=== PATIENT | male | born 2000 | race African-American/Black ===

== ENCOUNTER 2024-07-13 07:45 | Emergency (ER) | payer BC, SELFPAY ==
--- NOTE | ~2024-07-13 | XR_ITS ---
Clinical Indication: Syncope PA and lateral views of the chest: Comparison: None Findings: The lungs are clear, without evidence of focal consolidation or pleural effusion. Cardiome diastinal silhouette is within normal limits. Bones and soft tissues are unremarkable. Impression: Normal chest. Reviewed, dictated and finalized at location . Impression: Normal chest.
--- NOTE | 2024-07-13 07:52 | ECG_ITS ---
Test Date: 2024-07-13 07:56:30 Measurements Intervals [place] Rate: 61 P: 70 [place]: 235 QRS: 52 QRSD: 106 T: 47 QT: 393 QTc: 399 Interpretive Statements SINUS RHYTHM WITH FIRST DEGREE AV BLOCK ST ELEVATION IN DIFFUSE LEADS- PROBABLY EARLY REPOLARIZATION BORDERLINE ECG No previous ECG available for comparison Electronically Signed On 07-13-2024 08:25:50 CDT by Estuardo Jerez D.O.
[2024-07-13 07:54] VITALS: PULSE 61
[2024-07-13 08:05] VITALS: BP 113/62; PULSE 58
[2024-07-13 08:06] VITALS: BP 111/61; BP 121/66; PULSE 65; PULSE 72
[2024-07-13 08:08] VITALS: TEMP 36.4
--- NOTE | 2024-07-13 08:12 | ED_ITS ---
HPI - Syncope General Chief Complaint: Syncope Stated Complaint: syncopal episode this morning Time Seen by Provider: 07/13/24 07:54 History of Present Illness HPI narrative: Patient is a 23-year-old male who presents ER after having an episode of syncope this morning. He had urinated and then felt nauseous and tried to vomit when he became lightheaded and passed out. Unconscious for 20 seconds her last. No blood thinners. Feels well at this time. Denies any risk for dehydration over last 24 hours. No recent medication changes. Related Data Allergies Allergy/AdvReac Type Severity Reaction Status Date / Time No Known Allergies Allergy Verified 07/13/24 07:47 Review of Systems 2 Review of Systems: All systems reviewed & are unremarkable except as noted in HPI and below Constitutional: Constitutional: Reports no additional constitutional complaints ENT: Reports system reviewed and no additional complaints, except as documented Cardiovascular: Cardiovascular: Reports no additional cardiovascular complaints Respiratory: Respiratory: Reports no additional respiratory complaints Neurologic: Reports system reviewed and no additional complaints, except as documented PMFSH Past Medical History Medical History (Updated 07/13/24 @ 10:39 by Best Mckeon MD) Healthy adult male Surgical History Surgical History (Updated 07/13/24 @ 08:13 by Best Mckeon MD) No pertinent past surgical history Exam 2 Narrative: GENERAL: Well-appearing, well-nourished, and in no acute distress. HEAD: Normocephalic, atraumatic. ENT: Mucous membranes moist. CHEST: Clear to auscultation. No respiratory distress. HEART: Regular rate and rhythm. No murmur heard. Normal peripheral pulses. ABDOMEN: Soft, nontender, nondistended. EXTREMITIES: Normal range of motion. No edema. SKIN: Warm, dry, no rash. NEURO: Alert and oriented x3. PSYCH: Normal mood and affect. Course Course Emergency Course: Lab/EKG/orthostatics unremarkable. Patient hydrated. Appropriate for discharge home. Vital Signs Vital signs: Vital Signs Pulse Rate 61 07/13/24 07:54 Temperature 97.5 F L 07/13/24 08:08 Pulse Rate 72 07/13/24 08:06 Blood Pressure 111/61 07/13/24 08:06 MDM - Syncope Lab Data 07/13/24 08:02 07/13/24 08:02 Labs: Lab Results 07/13/24 Range/Units 08:02 WBC 8.6 (4.5-10.0) K/mm3 RBC 5.04 (4.6-6.20) M/mm3 Hgb 13.8 L (14.0-18.0) g/dL Hct 44.5 (42.0-52.0) % MCV 88.3 (80-100) fl MCH 27.4 (26-34) pg MCHC 31.0 L (32-36) g/dl RDW 12.1 (11.5-14.5) % Plt Count 330 (150-375) k/mm3 MPV 9.3 (7.4-10.4) fl Immature Gran % (Auto) 0.3 (0-0.5) % Neut % (Auto) 48.9 (45.5-73.1) % Lymph % (Auto) 42.0 (18.3-44.2) % [place] % (Auto) 7.4 (2.6-8.5) % Eos % (Auto) 0.5 (0-4.4) % Baso % (Auto) 0.9 (0.2-1.2) % Lymph # (Auto) 3.61 H (0.9-3.2) K/mm3 [place] # (Auto) 0.6 (0.1-0.6) K/mm3 Eos # (Auto) 0.0 (0-0.3) K/mm3 Baso # (Auto) 0.1 (0.0-0.1) K/mm3 Abs Immat Gran (auto) 0.03 (0.00-0.031) K/mm3 Absolute Neuts (auto) 4.2 (1.3-6.7) K/mm3 Absolute Nucleated RBC 0.000 (0.0-0.012) K/mm3 Nucleated RBC % 0.0 (0.0-0.2) % Sodium 138 (137-145) mmol/L Potassium 4.1 (3.4-5.0) mmol/L Chloride 103 (98-107) mmol/L Carbon Dioxide 25 (22-30) mmol/L Anion Gap 10 (4-12) mmol/L BUN 10 (9-20) mg/dL Creatinine 0.89 (0.7-1.3) mg/dL Estim Creat Clear Calc 135 ml/min Estimated GFR > 60 (59 - ) Glucose 146 H (65-110) mg/dL Calcium 9.4 (8.4-10.2) mg/dL Total Bilirubin 0.8 (0.2-1.3) mg/dL AST 45 (17-59) U/L ALT 35 (6-50) U/L Alkaline Phosphatase 71 (38-126) U/L Total Protein 7.9 (6.3-8.2) g/dL Albumin 4.7 (3.5-5.1) g/dL Imaging Data Radiologist's impression: ITS Impressions Chest X-Ray 07/13/24 08:35 Impression: Normal chest. ECG Data EKG #1: ECG completion date: 07/13/24 ECG completion time: 07:56 EKG Interpretation: normal rate (61), sinus rhythm, no ST changes (early repolarization abnormality), normal QRS and normal QT Discharge Plan Discharge Clinical Impression: Vasovagal syncope Patient Disposition: Home Condition: Stable Instructions: Syncope (ED) Additional Instructions: Return to the emergency department if you develop severe abdominal pain, severe nausea and vomiting to the point where you are unable to keep down fluids, if you develop chest pain or difficulty breathing, blood in your stool, dizziness or fainting, or if you develop any other new or concerning symptoms as these could be signs of more serious medical illness. Try to stay well hydrated. Patient Language: Syrian Prescriptions: New ondansetron 4 mg tablet,disintegrating 4 mg PO Q6H PRN (Reason: nausea and vomiting) Qty: 10 0RF Follow-up/Referrals: Danny Crandall MD [Physician] - 1 Week PHYSICIAN,VAULT CUSTODIAN [Primary Care Provider] -
[2024-07-13 08:13] LABS: Basophils Absolute Auto 0.1 K/mm3 (0.0-0.1); Basophils Percent Auto 0.9 % (0.2-1.2); Eosinophils Percent Auto 0.5 % (0-4.4); Hematocrit 44.5 % (42.0-52.0); Hemoglobin 13.8 g/dL (14.0-18.0); Immature Granulocyte Absolute 0.03 K/mm3 (0.00-0.031); Immature Granulocyte Percent A 0.3 % (0-0.5); Lymphocytes Absolute Auto 3.61 K/mm3 (0.9-3.2); Mean Corpuscular Hemoglobin 27.4 pg (26-34); Mean Corpuscular Volume 88.3 fl (80-100); Mean Platelet Volume 9.3 fl (7.4-10.4); Monocytes Absolute Auto 0.6 K/mm3 (0.1-0.6); Monocytes Percent Auto 7.4 % (2.6-8.5); Neutrophils Absolute Auto 4.2 K/mm3 (1.3-6.7); Neutrophils Percent Auto 48.9 % (45.5-73.1); Platelet Count Result 330 k/mm3 (150-375); Red Blood Count 5.04 M/mm3 (4.6-6.20); Red Cell Distribution Width 12.1 % (11.5-14.5); White Blood Count 8.6 K/mm3 (4.5-10.0)
--- OUTSIDE RECORDS SUMMARY | 2024-07-13 08:18 | XMS_ITS | Continuity of Care Document ---
Author Organization [facility] [employer] Address [address] [place] [address] Care Team Providers Care Special Education Teaching Assistant Name Role Phone No Information Unavailable Unavailable Advance Directives Directive Yes / No Effective Date File Name No Information Encounters Encounter Description Practice Location Reason(s) For Visit Diagnoses Date Provider Providers Copied on Encounter [facility], [address], [place], [phone], No Information No Information Family History Family Member Type Diagnosis Age At Onset Maternal Aunt Problem (finding) Congenital Heart Disea se Problem (finding) No family history of Morton dden Problem (finding) No family history of Ar rhythmia Problem (finding) No family hist ory of Cardiomyopathy - dilated Problem (finding) No family hist ory of Cardiomyopathy - hypertrophic Paternal Grandfather Problem (finding) Hypertension Problem (finding) No family hist ory of Premature CAD Problem (finding) No family hist ory of Diabetes Mellitus Paternal Grandmother Problem (finding) Hypertension Payers Payer name Insurance type Covered libertarian ID Authoriza tion(s) No Information Social History Type Description Quantity Date Captured Comments Alcohol Use Details Unknown Caffeine Use Details Unknown Tobacco Use Status No Information Smoking Status No Information Sex Male Vital Signs Date / Time: Height Weight BMI Pulse Rate Blood Pressure Temperature Respiratory Rate Body Surface Area Head Circumference BMI percentile Pulse Ox Inhaled Ox 2:13 PM 69.00 in 77.111 kg (170.00 lbs) 25.2 0 kg/m eter (2) 72 /min 18 /min 1.94 meter(2) 93 Chief Complaint And Reason For Visit No Information History Of Present Illness Encounter Date Complaint History Of Prese nt Illness No Information Instructions Date Instruction Additional Infor mation No Information Assessments Type Assessment Date No Information
--- OUTSIDE RECORDS SUMMARY | 2024-07-13 08:18 | XMS_ITS | Continuity of Care Document ---
Author Organization [facility] Address [address] [place] [address] Phone Care Team Providers Care Auto Garage Mechanic Name Role Phone Unavailable Unavailable Unavailable Advance Directives Directive Yes / No Effective Date File Name No Information Encounters Encounter Description Practice Location Reason(s) For Visit Diagnoses Date Provider Providers Copied on Encounter [facility], [address], [place], [address], tel:[phone] [address] [place] [address] No Information 6 No Information Referring Provider: CLAUDIO Schulte, [address], [address]. tel:[phone] Family History Family Member Type Diagnosis Age At Onset Problem (finding) No family hist ory of Diabetes Mellitus Problem (finding) No family hist ory of Cardiomyopathy - hypertrophic Problem (finding) No family hist ory of Cardiomyopathy - dilated Paternal Grandfather Problem (finding) Hypertension Problem (finding) No family history of Morton dden Problem (finding) No family hist ory of Premature CAD Paternal Grandmother Problem (finding) Hypertension Maternal Aunt Problem (finding) Congenital Heart Disea se Problem (finding) No family history of Ar rhythmia Payers Payer name Insurance type Covered democrat ID Authoriza tion(s) No Information Social History Type Description Quantity Date Captured Comments Sex Male Smoking Status No Information Chief Complaint And Reason For Visit No Information History Of Present Illness Encounter Date Complaint History Of Prese nt Illness No Information Instructions Date Instruction Additional Infor mation No Information Assessments Type Assessment Date No Information
[2024-07-13 08:21] LABS: Alanine Aminotransferase 35 U/L (6-50); Albumin Level 4.7 g/dL (3.5-5.1); Alkaline Phosphatase 71 U/L (38-126); Anion Gap 10 mmol/L (4-12); Aspartate Amino Transferase 45 U/L (17-59); Bilirubin,Total 0.8 mg/dL (0.2-1.3); Blood Urea Nitrogen 10 mg/dL (9-20); Calcium 9.4 mg/dL (8.4-10.2); Carbon Dioxide 25 mmol/L (22-30); Chloride 103 mmol/L (98-107); Estimated CRCL calculation 135 ml/min; Estimated Glomerular Filt Rate > 60; Glucose 146 mg/dL (65-110); Potassium 4.1 mmol/L (3.4-5.0); Sodium 138 mmol/L (137-145); Total Protein 7.9 g/dL (6.3-8.2)
[2024-07-13] MEDS: SODIUM CHLORIDE 0.9% IV 1,000 ML 999 ML IV CONT (09:44)
[2024-07-13 10:42] VITALS: BP 110/72; PULSE 56; RESP 13; O2SAT 100
[2024-07-13 10:52] VITALS: BP 110/72; PULSE 62; RESP 13; O2SAT 100
== END 2024-07-13 10:54 | disposition home or self-care (01) ==
PROVIDERS: Emergency Provider Emergency Medicine
DX: R55 Syncope and collapse (principal)
CPT/HCPCS: 36415; 71046; 80053; 85025; 93005; 96360; 99284; J7030

== ENCOUNTER 2024-07-25 14:31 | Emergency (ER) | payer BC, SELFPAY ==
[2024-07-25] VITALS (13 sets, daily range): BP systolic 121–142; BP diastolic 59–81; PULSE 53–82; RESP 12–20; TEMP 36.4; O2SAT 98–100
--- NOTE | ~2024-07-25 | CT_ITS ---
CT abdomen pelvis w con Ordering provider: Luz Maria Finch PA-C History: 23 years Male with . epigastric pain . Comparison: None. Technique: CT abdomen and pelvis with IV and without oral contrast. Automated exposure control and it erative reconstruction technique were employed. The dose-length product was 659.86 mGy-cm. 100 mL Omn ipaque 350 was given IV. Findings: VISUALIZED LOWER CHEST: 3.7 mm nodule is seen in the left lung base laterally. 6 months follow-up [facility] CT is advised. Another smaller one in the right lung base measuring 2 mm is also seen. UPPER ABDOMINAL ORGANS: Liver: Normal. Gallbladder: Normal. Spleen: Normal. Stomach/duodenum: Normal. Pancreas: Normal. Adrenals: Normal. Kidneys: Normal. PELVIC ORGANS: The bladder is underfilled with thickened wall. Evaluation for cystitis advised. BOWEL AND MESENTERY: Colon: No evidence of diverticulitis. Slight thickening of the colon is seen which may be atelectasis . Fecal material is loaded in the colon. The appendix is not demonstrated.. Small Bowel: Normal. No obstruction. Peritoneum/mesentery: No free air or free fluid. No mesenteric lymphadenopathy. RETROPERITONEUM: Normal aorta. No retroperitoneal lymphadenopathy. MUSCULOSKELETAL: Superficial soft tissues: Slightly enlarged inguinal lymph nodes measuring 2 cm on the right and 2.3 cm on the left. Clinical correlation advised. The superficial soft tissues are normal. Bones: Normal spine. IMPRESSION: 1. No evidence of appendicitis, diverticulitis or intestinal obstruction. 2. Thickened wall of the rectum suggestive of acute cholecystitis. Clinical correlation advised. 3. Constipation. Reviewed, dictated and finalized at location A. IMPRESSION: 1. No evidence of appendicitis, diverticulitis or intestinal obstruction. 2. Thickened wall of the rectum suggestive of acute cholecystitis. Clinical co rrelation advised. 3. Constipation.
--- NOTE | 2024-07-25 14:40 | ECG_ITS ---
Test Date: 2024-07-25 14:46:19 Measurements Intervals [place] Rate: 65 P: 58 [place]: 232 QRS: 52 QRSD: 101 T: 40 QT: 370 QTc: 385 Interpretive Statements SINUS RHYTHM WITH FIRST DEGREE AV BLOCK ST ELEVATION IN DIFFUSE LEADS- PROBABLY EARLY REPOLARIZATION MINIMAL Q WAVES- INF/LAT LEADS BASELINE ARTIFACT- I, II, III, AVR, AVL, AVF, V1-V6 BORDERLINE ECG Compared to ECG 07/13/2024 07:56:30 NO SIGNIFICANT CHANGE Electronically Signed On 07-25-2024 14:51:17 CDT by Estuardo Jerez D.O.
[2024-07-25 15:00] LABS: Basophils Percent Auto 0.6 % (0.2-1.2); Eosinophils Absolute Auto 0.2 K/mm3 (0-0.3); Eosinophils Percent Auto 2.5 % (0-4.4); Hematocrit 45.7 % (42.0-52.0); Hemoglobin 14.6 g/dL (14.0-18.0); Immature Granulocyte Absolute 0.02 K/mm3 (0.00-0.031); Immature Granulocyte Percent A 0.3 % (0-0.5); Lymphocytes Absolute Auto 2.68 K/mm3 (0.9-3.2); Lymphocytes Percent Auto 42.2 % (18.3-44.2); Mean Corpuscular HGB Conc 31.9 g/dl (32-36); Mean Corpuscular Hemoglobin 27.4 pg (26-34); Mean Corpuscular Volume 85.7 fl (80-100); Mean Platelet Volume 8.9 fl (7.4-10.4); Monocytes Absolute Auto 0.7 K/mm3 (0.1-0.6); Monocytes Percent Auto 10.2 % (2.6-8.5); Neutrophils Absolute Auto 2.8 K/mm3 (1.3-6.7); Neutrophils Percent Auto 44.2 % (45.5-73.1); Platelet Count Result 333 k/mm3 (150-375); Red Blood Count 5.33 M/mm3 (4.6-6.20); Red Cell Distribution Width 12.2 % (11.5-14.5); White Blood Count 6.4 K/mm3 (4.5-10.0)
--- NOTE | 2024-07-25 15:01 | ED_ITS ---
HPI - Dizziness General Chief Complaint: Dizziness Stated Complaint: dizziness, dark stools Time Seen by Provider: 07/25/24 14:39 Source: patient Mode of arrival: ambulatory Limitations: no limitations History of Present Illness HPI Narrative: This is a 23-year-old male that presents to the emergency department for nausea, dizziness. Ongoing over the last couple of weeks. Reports today he noted his stool looks dark. He does take iron. Denies fevers, vomiting, diarrhea. Related Data Allergies Allergy/AdvReac Type Severity Reaction Status Date / Time No Known Allergies Allergy Verified 07/25/24 14:32 Review of Systems 2 Review of Systems: CONSTITUTIONAL: Denies fever GASTROINTESTINAL: Reports abdominal pain, nausea. Denies vomiting, or diarrhea. GENITOURINARY: Denies dysuria All systems reviewed & are unremarkable except as noted in HPI and below PMFSH Past Medical History Medical History (Updated 07/25/24 @ 19:30 by Luz Maria Finch PA-C) Healthy adult male Surgical History Surgical History (Updated 07/13/24 @ 08:13 by Best Mckeon MD) No pertinent past surgical history Exam 2 Narrative: GENERAL: Well-appearing, well-nourished, and in no acute distress. HEAD: Normocephalic, atraumatic. EYES: EOMI. ENT: Nares clear, no rhinorrhea or epistaxis. Mucous membranes moist. Oropharynx without tonsillar hypertrophy exudate or other lesions. NECK: Supple. No adenopathy or masses. CHEST: Clear to auscultation. No respiratory distress. No wheezes rales or rhonchi HEART: Regular rate and rhythm. No murmur heard. Normal peripheral pulses. ABDOMEN: Soft, nontender, nondistended, normal active bowel sounds. EXTREMITIES: Normal range of motion. No edema. SKIN: Warm, dry, no rash. NEURO: No focal deficits. Alert and oriented x3. PSYCH: Normal mood and affect Course Course Emergency Course: Patient updated on his workup and agrees with plan of care Vital Signs Vital signs: Vital Signs Temperature 97.5 F L 07/25/24 14:35 Pulse Rate 66 07/25/24 14:35 Respiratory Rate 20 07/25/24 14:35 Blood Pressure 142/61 H 07/25/24 14:35 Pulse Oximetry 100 07/25/24 14:35 Oxygen Delivery Room Air 07/25/24 14:35 Temperature 97.5 F L 07/25/24 14:35 Pulse Rate 55 L 07/25/24 18:01 Respiratory Rate 17 07/25/24 18:01 Blood Pressure 127/80 07/25/24 18:01 Pulse Oximetry 100 07/25/24 18:01 Oxygen Delivery Room Air 07/25/24 14:35 MDM - Dizziness MDM Narrative Medical decision making narrative: Patient presents the emergency department for epigastric abdominal discomfort, nausea, dizziness. He is afebrile and nontoxic appearing. His vitals are stable. Endorsing some dark stools, although patient does take iron. Cbc without leukocytosis. Hemoglobin is normal. Metabolic panel without concerning findings. Urine with some evidence of dehydration, patient hydrated with a L of IV fluids in the ED. CT abdomen pelvis shows findings of constipation. Patient updated on his workup and agrees with plan of care, resting comfortably. He is to follow-up with gastroenterology. He was given warnings to return to the ER Differential Diagnosis Differential diagnosis: Likely adverse reaction to drug, orthostatic hypotension and other (Dehydration, electrolyte derangement, anemia, peptic ulcer disease, gastritis) Lab Data Attestation: I reviewed the patient's lab results. 07/25/24 14:51 07/25/24 14:51 Labs: Lab Results 07/25/24 07/25/24 Range/Units 14:51 15:00 WBC 6.4 (4.5-10.0) K/mm3 RBC 5.33 (4.6-6.20) M/mm3 Hgb 14.6 (14.0-18.0) g/dL Hct 45.7 (42.0-52.0) % MCV 85.7 (80-100) fl MCH 27.4 (26-34) pg MCHC 31.9 L (32-36) g/dl RDW 12.2 (11.5-14.5) % Plt Count 333 (150-375) k/mm3 MPV 8.9 (7.4-10.4) fl Immature Gran % (Auto) 0.3 (0-0.5) % Neut % (Auto) 44.2 L (45.5-73.1) % Lymph % (Auto) 42.2 (18.3-44.2) % [place] % (Auto) 10.2 H (2.6-8.5) % Eos % (Auto) 2.5 (0-4.4) % Baso % (Auto) 0.6 (0.2-1.2) % Lymph # (Auto) 2.68 (0.9-3.2) K/mm3 [place] # (Auto) 0.7 H (0.1-0.6) K/mm3 Eos # (Auto) 0.2 (0-0.3) K/mm3 Baso # (Auto) 0.0 (0.0-0.1) K/mm3 Abs Immat Gran (auto) 0.02 (0.00-0.031) K/mm3 Absolute Neuts (auto) 2.8 (1.3-6.7) K/mm3 Absolute Nucleated RBC 0.000 (0.0-0.012) K/mm3 Nucleated RBC % 0.0 (0.0-0.2) % PT 12.8 (11.1-14.7) Seconds INR 0.9 APTT 27.8 (22.3-36.8) Seconds Sodium 139 (137-145) mmol/L Potassium 4.2 (3.4-5.0) mmol/L Chloride 103 (98-107) mmol/L Carbon Dioxide 25 (22-30) mmol/L Anion Gap 11 (4-12) mmol/L BUN 8 L (9-20) mg/dL Creatinine 0.91 (0.7-1.3) mg/dL Estim Creat Clear Calc 133 ml/min Estimated GFR > 60 (59 - ) Glucose 100 (65-110) mg/dL Calcium 9.6 (8.4-10.2) mg/dL Total Bilirubin 0.7 (0.2-1.3) mg/dL AST 39 (17-59) U/L ALT 29 (6-50) U/L Alkaline Phosphatase 73 (38-126) U/L Total Protein 8.7 H (6.3-8.2) g/dL Albumin 4.9 (3.5-5.1) g/dL Lipase 35 (23-300) U/L Urine Color Yellow (Yellow) Urine Appearance Clear (Clear) Urine pH 6.5 (5.0-9.0) Ur Specific [place] 1.019 (1.001-1.035) Urine Protein Negative (Negative) mg/dL Urine Glucose (UA) Negative (Negative) mg/dL Urine Ketones Trace H (Negative) mg/dL Ur Blood (Man) Negative (Negative) Urine Nitrate Negative (Negative) Urine Bilirubin Negative (Negative) Urine Urobilinogen 1.0 (<2.0) mg/dL Leukocyte Esterase Rfl Negative (Negative) DHEERAJ/UL Blood Type O Positive Antibody Screen Negative Imaging Data Radiologist's impression: ITS Impressions Abdomen/Pelvis CT 07/25/24 18:44 IMPRESSION: 1. No evidence of appendicitis, diverticulitis or intestinal obstruction. 2. Thickened wall of the rectum suggestive of acute cholecystitis. Clinical correlation advised. 3. Constipation. ADDENDUM: 07/25/241925 IMPRESSION: 1. No evidence of appendicitis, diverticulitis or intestinal obstruction. 2. Thickened wall of the rectum suggestive of proctitis. Clinical correlation advised. 3. Constipation. ECG Data EKG #1: ECG completion date: 07/25/24 EKG Interpretation: normal rate, sinus rhythm, ST elevation (Consistent with early repolarization), normal QT and no acute changes (compared to EKG 07/13/24) Critical Care Time Critical Care Time Critical Care Time: No Discharge Plan Discharge Clinical Impression: Nausea, Dizziness, Constipation Patient Disposition: Home Condition: Stable Instructions: Constipation (ED), Diet for Stomach Ulcers and Gastritis (ED), Acute Nausea and Vomiting (ED), Dizziness (ED) Additional Instructions: Return to the ER if you experience fever, abdominal pain with nausea and vomiting, you are unable to keep down liquids or solids, or any other symptoms that are concerning to you Small, frequent meals. [place] diet. Remain well hydrated. Take pantoprazole as prescribed. Colace as needed Follow up with Gastroenterology Patient Language: Ukrainian Prescriptions: New pantoprazole 40 mg tablet,delayed release (DR/EC) 40 mg PO HS 28 Days Qty: 28 0RF No Action ondansetron 4 mg tablet,disintegrating 4 mg PO Q6H PRN (Reason: nausea and vomiting) Qty: 10 0RF Follow-up/Referrals: PHYSICIAN,TUNNEL ELASTIC OPERATOR LOCKSTITCH [Non-Staff] - Cleveland Car MD [Physician] -
[2024-07-25 15:11] LABS: Alanine Aminotransferase 29 U/L (6-50); Albumin Level 4.9 g/dL (3.5-5.1); Alkaline Phosphatase 73 U/L (38-126); Anion Gap 11 mmol/L (4-12); Aspartate Amino Transferase 39 U/L (17-59); Bilirubin,Total 0.7 mg/dL (0.2-1.3); Blood Urea Nitrogen 8 mg/dL (9-20); Calcium 9.6 mg/dL (8.4-10.2); Carbon Dioxide 25 mmol/L (22-30); Chloride 103 mmol/L (98-107); Estimated CRCL calculation 133 ml/min; Estimated Glomerular Filt Rate > 60; Glucose 100 mg/dL (65-110); INR 0.9; Lipase 35 U/L (23-300); Potassium 4.2 mmol/L (3.4-5.0); Prothrombin Time 12.8 Seconds (11.1-14.7); Sodium 139 mmol/L (137-145); Total Protein 8.7 g/dL (6.3-8.2)
[2024-07-25 15:12] LABS: Partial Thromboplastin Time 27.8 Seconds (22.3-36.8)
[2024-07-25 15:16] LABS: Add Urine Microscopic? NO; Appearance Urine Clear (Clear); Bilirubin Urine Negative (Negative); Blood Urine Negative (Negative); Color Urine Yellow (Yellow); Glucose Urine UA Negative (Negative); Ketones Urine Trace mg/dL (Negative); Leukocyte Esterase Ur Negative LEU/UL (Negative); Nitrate Urine Negative (Negative); Protein Urine Negative (Negative); Specific Grav Ur 1.019 (1.001-1.035); pH Urine 6.5 (5.0-9.0)
[2024-07-25] MEDS: SODIUM CHLORIDE 0.9% IV 1,000 ML 999 ML IV CONT (15:29)
[2024-07-25] MEDS: PANTOPRAZOLE SODIUM IV 40 MG VIAL IV PUSH (16:24)
[2024-07-25] MEDS: ONDANSETRON INJ 4 MG/2 ML VIAL IV PUSH (16:46)
== END 2024-07-25 19:55 | disposition home or self-care (01) ==
PROVIDERS: Emergency Provider Physician Assistant; PCP Internal Medicine
DX: R42 Dizziness and giddiness (principal); K59.00 Constipation, unspecified; R11.0 Nausea
CPT/HCPCS: 36415; 74177; 80053; 81003; 83690; 85025; 85610; 85730; 86850; 86900; 86901; 93005; 96361; 96374; 96375; 99284; J2405; J2470; J7030; Q9967